=== PATIENT | male | born 1975 | race African-American/Black ===

== ENCOUNTER 2017-02-09 07:36 | Emergency (ER) | payer BC, OTHER ==
[~2017-02-09] VITALS: Ht 177.8 cm; Wt 108.4 kg
[2017-02-09 07:38] VITALS: BP 154/101
[2017-02-09] MEDS ORDERED: LISINOPRIL10 MG PO (07:41)
[2017-02-09] MEDS ORDERED: METFORMIN HCL500 MG PO (07:42)
[2017-02-09] MEDS ORDERED: LIPITOR 20 MG T20 M1 PO (07:42)
[2017-02-09] MEDS ORDERED: NAPROSYN500 MG PO (08:20)
[2017-02-09] MEDS ORDERED: NORFLEX100 MG PO (08:20)
== END 2017-02-09 08:31 | disposition home or self-care (01) ==
LOC: ER 07:36
DX: M43.6 Torticollis (principal)